=== PATIENT | female | born 1990 | race Caucasian/White ===

== ENCOUNTER 2025-02-27 05:58 | Inpatient (IN) | payer BC ==
[2025-02-27 06:38] VITALS: BMI 25.8
[2025-02-27] MEDS ORDERED: Methylergonovine 0.2 MG/ML VIAL IM PRN (08:13)
[2025-02-27] MEDS ORDERED: HYDROcodone/Acetaminophen 5/325 mg Tablet PO PRN ×2 (08:13→16:52)
[2025-02-27] MEDS ORDERED: Lidocaine 1% (PF) 30 ML VIAL SC PRN (08:13)
[2025-02-27] MEDS ORDERED: Ondansetron PF 4 MG/2 ML Vial IVP PRN ×2 (08:13→16:52)
[2025-02-27] MEDS ORDERED: Diphenoxylate HCl/Atropine Tablet PO PRN (08:13)
[2025-02-27] MEDS ORDERED: hydrALAZINE 20 MG/ML VIAL SLOW IVP PRN ×2 (08:13→16:52)
[2025-02-27] MEDS ORDERED: Carboprost 250 MCG/ML AMP IM PRN (08:13)
[2025-02-27] MEDS ORDERED: Acetaminophen 500 MG TAB PO PRN (08:13)
[2025-02-27] MEDS ORDERED: Oxytocin 30 units/NS 500 ML 500 ML IV SCH ×2 (08:15)
[2025-02-27 08:34] LABS: Hematocrit 37.5 % (34.9-44.5); Hemoglobin 13.4 g/dL (12.0-15.5); Mean Corpuscular Hemoglobin 30.9 pg (27.0-33.0); Mean Corpuscular Volume 86.4 fL (81.6-98.3); Platelet Count 246 10x3/uL (150-450); Red Blood Cell (RBC) Count 4.34 10x6/uL (3.90-5.03); White Blood Cell (WBC) Count 8.97 10x3/uL (3.5-10.5)
[2025-02-27 09:04] LABS: Hep B Surf Ag - L&D Non-Reactive S/CO (NonReactive)
[2025-02-27 09:05] LABS: Syphilis Antibody Index 0.08 S/CO (<1.00 Non-Reactive)
[2025-02-27] MEDS: Ibuprofen 800 MG TAB PO PRN (11:37)
[2025-02-27] MEDS ORDERED: diphenhydrAMINE 25 MG CAP PO PRN (16:52)
[2025-02-27] MEDS ORDERED: Preparation H Ointment 28 GM TUBE PR PRN (16:52)
[2025-02-27] MEDS ORDERED: Benzocaine-Menthol 82.5 ML CAN TOP PRN (16:52)
[2025-02-27] MEDS ORDERED: Milk Of Magnesia 30 ML UDCUP PO PRN (16:52)
[2025-02-27] MEDS ORDERED: Bisacodyl 10 MG SUPP PR PRN (16:52)
[2025-02-27] MEDS ORDERED: Lanolin Ointment 7 GM TUBE TOP PRN (16:52)
[2025-02-27] MEDS: Ferrous Sulfate 325 MG TAB PO SCH (17:24)
[2025-02-27] MEDS: Acetaminophen 500 MG TAB PO PRN (17:38)
[2025-02-27] MEDS: Ibuprofen 800 MG TAB PO SCH (21:10)
[2025-02-28 08:09] VITALS: TEMP 98
[2025-02-28 11:59] VITALS: BP 118/73
== END 2025-02-28 13:40 | disposition home or self-care (01) | DRG 807 ==
LOC: CSHLD/OP 05:58 → CSHLD 08:06 → CSHPP 20:55
PROVIDERS: ADMIT Student in an Organized Health Care Education/Training Program; ATTEND Student in an Organized Health Care Education/Training Program
PROC: 10E0XZZ Delivery of Products of Conception, External Approach (ICD-10-PCS; principal; 2025-02-27)
DX: O69.81X0 Labor and delivery complicated by cord around neck, without compression, not applicable or unspecified (principal); Z37.0 Single live birth; Z3A.39 39 weeks gestation of pregnancy
CPT/HCPCS: 85027; 86780; 86850; 86900; 86901; 87340; 99285